=== PATIENT | female | born 1940 | race Caucasian/White ===

== ENCOUNTER 2019-01-06 11:06 | Emergency (ER) | payer MEDICARE, OTHER ==
[~2019-01-06] VITALS: Ht 165.1 cm; Wt 54.0 kg
[~2019-01-06 11:06] MED LIST: ASA81 MG PO; BENADRYL; CLORAZEPATE DI7.5 MG PO; CLORAZEPATE PO; Omega 3; PEPCID; PREDNISONE; Z FOSAMAX; Z PRESERVISION PO; Z VITAMIN E PO; Z.0.CITALOPRAM HBR10 PO; [UNRECOGNIZED DRUG - OTHER]; [UNRECOGNIZED DRUG - OTHER]; [UNRECOGNIZED DRUG - OTHER] PO; [UNRECOGNIZED DRUG - OTHER] PO; [UNRECOGNIZED DRUG - OTHER] PO; buspar
--- OUTSIDE RECORDS SUMMARY | 2019-01-06 11:09 | XMS REPORT ---
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 Allergies, Adverse Reactions, Alerts Allergy Name Allergy Type Status Severity Reaction(s) Onset Date Inactive Date Treating Clinician Comments Penicillins DA Active U 2018-03-14 00:00:00 Medications This patient has no known medications.
[2019-01-06] MEDS ORDERED: CLINDAMYCIN PHOS 600 MG/ 4 ML VIAL IM ONE (11:45)
== END 2019-01-06 12:08 | disposition home or self-care (01) ==
LOC: FSED 11:06
DX: L89.210 Pressure ulcer of right hip, unstageable (principal); I10 Essential (primary) hypertension; G35 Multiple sclerosis; Z87.19 Personal history of other diseases of the digestive system
CPT/HCPCS: 99282

== ENCOUNTER 2019-04-22 10:56 | Outpatient (RCR) | payer MEDICARE, OTHER ==
[2019-04-22 11:32] LABS: HEMATOCRIT 35.3 % (34.2-44.1); HEMOGLOBIN 11.4 g/dL (12.0-16.0); MEAN CORPUSCULAR HEMOGLOBIN 30.4 pg (28-32); MEAN CORPUSCULAR HGB CONC 32.3 g/dL (31-35); MEAN CORPUSCULAR VOLUME 94.1 fL (81-99); PLATELET COUNT 246 x10e3/uL (140-360); RED BLOOD COUNT 3.75 x10e6/uL (3.6-5.1); RED CELL DISTRIBUTION WIDTH 12.7 % (11.7-14.4)
[2019-04-22 11:49] LABS: ALANINE AMINOTRANSFERASE 13 IU/L (0-55); ALBUMIN 3.3 g/dL (3.5-5.0); ALBUMIN/GLOBULIN RATIO 0.9 (0.8-2.0); ALKALINE PHOSPHATASE 94 IU/L (40-150); ANION GAP 9.9 mmol/L (8-16); BLOOD UREA NITROGEN 17 mg/dL (7-26); BUN/CREATININE RATIO 20 (6-25); CALCIUM 9.8 mg/dL (8.4-10.2); CARBON DIOXIDE 29 mmol/L (22-29); CHLORIDE 101 mmol/L (98-107); CREATININE, SERUM 0.83 mg/dL (0.57-1.11); EST GLOMERULAR FILTRATION RATE > 60 ML/MIN (60-); GLUCOSE 72 mg/dL (74-118); POTASSIUM 4.9 mmol/L (3.5-5.1); SODIUM 135 mmol/L (136-145)
[2019-04-22] MEDS ORDERED: LIDOCAINE/PRILOCAINE 2.5-2.5% KIT ONE (12:56)
[2019-04-22] MEDS ORDERED: MUPIROCIN 2% OINT 22 GM TUBE ONE (12:56)
== END 2019-04-23 ==
LOC: WCC 10:56
PROVIDERS: ATTEND Family Medicine
DX: L89.890 Pressure ulcer of other site, unstageable (principal); G35 Multiple sclerosis; I10 Essential (primary) hypertension; M81.8 Other osteoporosis without current pathological fracture; Z74.01 Bed confinement status
CPT/HCPCS: 36415; 80053; 83036; 84134; 85007; 85027; 85651; 86140; 87071; 87075; 87205

== ENCOUNTER → 2019-04-23 | Outpatient (CLI) | payer MEDICARE, OTHER ==
--- NOTE | 2019-04-23 12:07 | Diagnostic Imaging Report ---
Right hip and pelvis, 2 views. History: Right hip pressure sore for 3 months. Findings: There is irregularity and air in the soft tissues overlying the right greater trochanter. Bone mineralization is normal. 3 screws are present within the right femoral neck, with their proximal portions slightly protruding laterally beyond the cortex. There is no evidence of acute fracture or dislocation. There are no lytic or sclerotic lesions. The joint spaces are within normal limits. IMPRESSION: Old postoperative changes of the right hip with overlying soft tissue irregularity and air concerning for soft tissue infection. No radiographic evidence of osteomyelitis, but a nuclear medicine bone scan would be more sensitive for detection of early osteomyelitis. Signed by: Bertin Ellis on 04/23/2019 12:03 PM
== END ==
LOC: RAD 11:12
PROVIDERS: ATTEND Family Medicine
DX: L89.890 Pressure ulcer of other site, unstageable (principal)

== ENCOUNTER → 2019-04-30 | Outpatient (CLI) | payer MEDICARE, OTHER ==
--- NOTE | 2019-05-03 10:17 | Diagnostic Imaging Report ---
Bone Scan, three-phase Reason for exam: Pressure ulcer at right hip posteriorly x3-4 months; right hip fracture during fall 02/2018. History of breast cancer 2012 Radiopharmaceutical: Tc-99m MDP 26 mCi IV right hand Comparison: RIght hip radiographs 04/23/2019 Following intravenous administration of the radiopharmaceutical, dynamic flow and immediate blood pool images of the pelvis and hips followed by delayed spot images were obtained. Flow and blood pool images show subtle diffusely increased tracer adjacent to the right compared to the left with focal mildly increased tracer in soft tissue immediately inferior to the right greater trochanter. On the delayed images, focal increased tracer is seen in the right femoral neck, consistent with known hip fracture. There is increased tracer activity in soft tissue inferior to the right greater trochanter. A small focus of very mildly increased tracer is seen in the right greater trochanter at the site of entry of the orthopedic screws that extend from immediately below the greater trochanter to the femoral neck.. Impression: Soft tissue inflammatory process in soft tissue adjacent to the area of the insertion of the orthopedic screws with focal increased tracer accumulation in the right greater trochanter at the site of entry screws that is worrisome for osteomyelitis. Signed by: Dr. Hemalatha Raines M.D. on 05/03/2019 10:14 AM
== END ==
LOC: NM 12:45
PROVIDERS: ATTEND Family Medicine
DX: L89.890 Pressure ulcer of other site, unstageable (principal)
CPT/HCPCS: 78315; A9503

== ENCOUNTER 2019-05-19 10:50 | Outpatient (RCR) | payer MEDICARE, OTHER ==
[~2019-05-19 10:50] MED LIST changes: +LIDOCAINE VISC 2% SOLN 15 ML UDC ONE; +LIDOCAINE/PRILOCAINE 2.5-2.5% KIT ONE; +MUPIROCIN 2% OINT 22 GM TUBE ONE
== END 2019-05-23 ==
LOC: WCC 10:50
PROVIDERS: ATTEND Family Medicine
DX: L89.893 Pressure ulcer of other site, stage 3 (principal); G35 Multiple sclerosis; I10 Essential (primary) hypertension; M81.8 Other osteoporosis without current pathological fracture; Z74.01 Bed confinement status

== ENCOUNTER 2019-06-16 12:43 | Outpatient (RCR) | payer MEDICARE, OTHER ==
[~2019-06-16 12:43] MED LIST changes: -LIDOCAINE VISC 2% SOLN 15 ML UDC ONE
[2019-06-16] MEDS ORDERED: LIDOCAINE/PRILOCAINE 2.5-2.5% KIT ONE (14:17)
== END 2019-06-23 ==
LOC: WCC 12:43
PROVIDERS: ATTEND Family Medicine
DX: L89.893 Pressure ulcer of other site, stage 3 (principal); L89.892 Pressure ulcer of other site, stage 2; M81.8 Other osteoporosis without current pathological fracture; G35 Multiple sclerosis; I10 Essential (primary) hypertension; Z74.01 Bed confinement status
CPT/HCPCS: 87071; 87075; 87205

== ENCOUNTER 2020-06-05 09:47 | Emergency (ER) | payer MEDICARE, OTHER ==
[~2020-06-05] VITALS: Ht 165.1 cm; Wt 45.4 kg
[~2020-06-05 09:47] MED LIST changes: -LIDOCAINE/PRILOCAINE 2.5-2.5% KIT ONE; -MUPIROCIN 2% OINT 22 GM TUBE ONE
--- NOTE | 2020-06-05 10:08 | Emergency Department Note ---
History of Present Illnes History of Present Illness Chief Complaint: Abdominal Complaints History of Present Illness This is a 80 year old female, with a history of MS, osteoporosis, a post-op RLE DVT in 09/2019, UTI, and chronic pain due to multiple right hip surgeries over the past 2 years, who is brought in with a four-day history of intermittent diarrhea, nausea, and weakness. Patient completed a course of antibiotics on 05/28/2020 for UTI. Patient took 3-4 days of Cipro, and then this was changed to Bactrim for 10 days, once the urine culture results were available. Patient's last UTI, prior to this one, was @ 6 months ago. Four days after completing these antibiotics, patient began to have diarrhea, typically in the block layer hours, with intermittent, mild lower abdominal cramping. She denies any blood or mucus in the stool. She states that her stools were firming up, but then she woke this morning and had explosive diarrhea, and she was unable to make it to the toilet. She had 3 episodes of loose, watery stool this morning. She denies any current abdominal pain, though she is having some mild nausea. She denies any fever, chills, cough, upper respiratory symptoms, dysuria, frequency, or urgency. Patient states that "she just doesn't feel good, stating that she feels washed out." She denies any chest pain, tightness, heaviness, or shortness of breath. Patient lives alone, and currently has 24-hour caregivers. She denies any known exposure to anyone with COVID 19. However, she does have 4 different caregivers that rotate caring for her. They do not wear a mask when they are in the house with her. She is attending physical therapy 3 times a week, as she recovers from multiple right hip surgeries, with the last one being 09/2019. She is minimally ambulatory, and only with assistance. Patient is allergic to PCN, as she states that "her throat closes." Patient was also started on Buprenorphine patch 5 mcg/hr last 05/30/20. The patch is on the right upper arm and is due to be changed tomorrow 06/06/2020. This is for chronic right hip pain, due to removal of the "ball of the right hip," and mulitple surgeries. Patient was taking Tylenol #3, prior to this patch being started. Historian: Patient, Family Member (daughter) Arrival Mode: Car Critical Care Registered Nurse Required: No Onset (how long ago): day(s) (4) Location: abdomen Quality: crampy Radiation: Reports non-radiation Severity: mild Onset quality: sudden Duration (how long): day(s) (4) Timing of current episode: intermittent Progression: waxing and waning Chronicity: new Context: Reports recent illness, Reports new medications (Buprenorphine patch started on 05/30/2020. She just completed a course of Cipro x 3 days, followed by Bactrim x 10 days. ) Relieving factors: none Exacerbating factors: none Associated symptoms: Reports loss of appetite, Reports malaise; Denies confusion, Denies cough, Denies fever/chills, Denies nausea/vomiting (nausea, without vomiting), Denies shortness of breath, Denies syncope, Denies weakness Treatments prior to arrival: other (She took Imodium and Pepto Bismol) Risk factors: recent antibiotic therapy, could cause c.diff. Past Medical/Family History Physician Review I have reviewed the patient's past medical and family history. Any updates have been documented here. Past Medical History Recent Fever: No Clinical Suspicion of Infectio: No New/Unexplained Change in Ment: No Past Medical History: Cancer (Right breast - treated with Lumpectomy in 2012;), UTI's, DVT/PE (09/2019 - RLE DVT, no PE;) Other Medical History: ANXIETY MS OSTEOPOROSIS ISCHEMIC COLITIS MITRAL VALVE PROLAPSE Chronic Anticoagulation, with Coumadin. Past Surgical History: Appendectomy, Hysterectomy Other Surgery: RIGHT SHOULDER LEFT SHOULDER THYROID LUMPECTOMY Right BREAST - due to breast cancer HIP SURGERY NECK FUSION CATARACT Social History Smoking Cessation: Never Smoker Alcohol Use: None Any Illegal Drug Use: No TB Exposure/Symptoms: No Physically hurt or threatened: No Family History Family history of heart diseas: No Other Last Tetanus: UTD Any Pre-Existing Lines (PICC,: No Is patient up to date on immun: Yes Review of Systems Review of Systems Constitutional: Reports malaise; Denies chills, Denies fever Cardiovascular: Denies chest pain, Denies palpitations Respiratory: Denies cough, Denies pain with cough, Denies dyspnea on exertion Gastrointestinal: Reports abdominal pain (mild, lower abdominal cramping), Reports diarrhea, Reports nausea; Denies vomiting Genitourinary: Reports no symptoms; Denies dysuria, Denies frequency Musculoskeletal: Reports joint pain (chronic right hip pain) Integumentary: Denies change in color, Denies rash Neurological: Reports no symptoms Psychological: Reports no symptoms Endocrine: Reports no symptoms Review of other systems: All other systems negative Physical Exam Related Data Allergies: Coded Allergies: Penicillins (Verified Allergy, Unknown, 01/06/19) Uncoded Allergies: SSRI'S (Allergy, Intermediate, 01/06/19) Vital signs reviewed: Yes Physical Exam CONSTITUTIONAL Constitutional: Present well-developed, Present well-nourished, Present cachectic, Present ill appearing; Absent distressed HENT HENT: Present normocephalic, Present atraumatic, Present oropharynx clear/moist, Present nose normal HENT L/R: Present left ext ear normal, Present right ext ear normal EYES Eyes: Reports PERRL, Reports conjunctivae normal NECK Neck: Present ROM normal PULMONARY Pulmonary: Present effort normal, Present breath sounds normal CARDIOVASCULAR Cardiovascular: Present regular rhythm, Present heart sounds normal, Present capillary refill normal, Present normal rate GASTROINTESTINAL Abdominal: Present soft, Present nontender, Present bowel sounds normal GENITOURINARY Genitourinary: Present exam deferred SKIN Skin: Present warm, Present dry; Absent rash MUSCULOSKELETAL Musculoskeletal: Absent edema, Absent tenderness NEUROLOGICAL Neurological: Present alert, Present oriented x 3 PSYCHOLOGICAL Psychological: Present mood/affect normal, Present behavior normal Results Laboratory Laboratory (See copies) PT/INR - 26.8/2.2; [place] - Cr = 0.6; Liver Panel - normal; CBC - WBC - nl; H/H = 11.4/35,4; plt - normal; Urine Dip - ket - tr, blo - mod, pro - trace, anahi - trace; Urine culture sent to [facility]< from the ED; Lab results reviewed: Yes Imaging Imaging results reviewed: Yes Impressions [place] [address] Patient Name: DARIELA RIOS MR #: [id number] : 1940 Age/Sex: 80/F Req #: [id number] Adm Physician: Ordered by: MAURO SOLORZANO MD Report #: [id number] Location: [facility] Room/Bed: Procedure: [id number] HOPD/CT ABD/PEL WO CONTRAST-HOPD Exam Date: 06/05/20 Exam Time: 1157 REPORT STATUS: Signed EXAM: CT Abdomen and Pelvis WITHOUT intravenous contrast INDICATION: Diarrhea, nausea COMPARISON: None. TECHNIQUE: Abdomen and pelvis were scanned utilizing a multidetector helical scanner from the lung base to the pubic symphysis without administration of IV contrast. Coronal and sagittal reformations were obtained. IV CONTRAST: None ORAL CONTRAST: None COMPLICATIONS: None RADIATION DOSE: Total DLP: 291 mGy*cm Dose modulation, iterative reconstruction, and/or weight based adjustment of the mA/kV was utilized to reduce the radiation dose to as low as reasonably achievable. FINDINGS: LOWER THORAX: Dependent right lower lobe groundglass and consolidative opacities. HEPATOBILIARY: 1.3 cm right hepatic cyst. No other focal liver lesions. Unremarkable gallbladder. SPLEEN: No splenomegaly. PANCREAS: No focal masses or ductal dilatation. ADRENALS: No adrenal nodules. KIDNEYS/URETERS: No hydronephrosis, stones, or solid mass lesions. PELVIC ORGANS/BLADDER: Unremarkable. PERITONEUM / RETROPERITONEUM: No free air or fluid. LYMPH NODES: No lymphadenopathy. VESSELS: Moderate athetotic calcifications of the nonaneurysmal abdominal aorta and major branches. 1.3 cm calcified splenic artery aneurysm. GI TRACT: Prominent diverticulosis of the sigmoid and distal descending colon. No CT evidence of diverticulitis. No abnormal bowel thickening. No bowel obstruction. Small amount of retained oral contrast material in the colon and distal small bowel. BONES AND SOFT TISSUES: Postoperative and/or post infectious findings of the right hip with resection of the right femoral head. No suspicious lytic or blastic lesions. IMPRESSION: Dependent right lower lobe groundglass and consolidative opacities may represent aspiration and/or pneumonia in the proper clinical setting. Prominent sigmoid and distal descending colon diverticulosis without CT evidence of diverticulitis. Prior resection of the right femoral head. Signed by: Remington Ely MD on 06/05/2020 12:23 PM Dictated By: REMINGTON ELY MD 1223 Transcribed By: TARIK on 06/05/20 1223 COPY TO: MAURO SOLORZANO MD~ Diagnostics Tests Diagnostic test(s) reviewed: Yes Assessment & Plan Medical Decision Making [facility] . 13:00 - discussed results of lab work and CT scan with patient, daughter, and caregiver at the bedside. Explained that the CT of the abdomen and pelvis revealed no pathology in the abdomen, other than diverticulosis which patient has had for a number of years. There was no evidence of diverticulitis to explain patient's diarrhea. However, the CT scan revealed a right lower lobe infiltrate, somewhat groundglass in appearance, but also suspicious for possible aspiration. Patient admits to choking on water, at times, but never on food. According to patient's daughter, there has been concern regarding aspiration previously, sometime over the past 2 years when patient has been in and out of the hospital due to right hip surgeries. She has had a swallowing study performed in the past, but it has been nearly 2 years ago. They do not recall patient having a history of aspiration pneumonia. - Pneumonia could be due to aspiration and/or COVID 19 infection. She has a nl WBC and other labs look great! - Will start Levaquin IV which will cover the pneumonia and possible UTI. Patient may also have a persistent UTI, with urine dip showing moderate blood and trace leuk, urine culture was sent. She is also having diarrhea, which started 4 days after she completed @ 14 days of oral antibiotics ( 3-4 days of Cipro, followed by 10 days of Bactrim). Stool studies may be indicated. Covid 19 could also be a possibility, if she has a positive test. - Explained to patient, that although her labs and vital signs look good, she would benefit from hospitalization in order to further evaluate for possible aspiration pneumonia, and to begin treatment if it is found to be present. Her diarrhea can also be further evaluated. Patient is agreeable to admission, for the reasons stated above. [facility] has no beds available, so [facility] is contacted for transfer of patient. Patient family are informed and agreeable. 13:35 - case discussed with Dr. Díaz, who is agreeable to accepting patient. She will need a rapid COVID 19 test, upon arrival. Assessment & Plan Final Impression: (1) Aspiration pneumonia (2) Person under investigation for COVID-19 (3) Diarrhea (4) UTI (urinary tract infection) (5) Weakness generalized (6) History of DVT (deep vein thrombosis) Depart Disposition: TRANS TO OTHER [facility] (pt accepted to [facility], by Dr. Luz, hospitalist manager documentation. ) Home Meds Active Scripts Buprenorphine (BUTRANS) 1 Each Patch.tdwk, 5 MCG TD q 7 days for chronic hip pain, #1 Prov:MAURO SOLORZANO MD 06/05/20 Reported Medications Warfarin Sodium (COUMADIN) 5 Mg Tablet 06/05/20 Warfarin Sodium (COUMADIN) 2.5 Mg Tablet, 2.5 MG PO 1700, #7 TAB 06/05/20 Clorazepate Dipotassium (CLORAZEPATE DIPOTASSIUM) 7.5 Mg Tablet, 5.5 MG PO AM 06/26/15 Citalopram Hydrobromide (Citalopram Hbr) 10 Mg Tablet, 10 MG PO DAILY 08/07/12 [[place] 3] No Conflict Check 08/07/12 Calcium Carbonate (Calcium) 500 Mg Tablet, 1800 UNIT PO DAILY, 0 Refills 09/23/11 Aspirin (Asa) 81 Mg Tab, 1 TAB PO DAILY 09/23/11 Clorazepate Dipotassium (Clorazepate Dipotassium) 3.75 Mg Tablet, 7.5 MG PO PM, 0 Refills 09/23/11 Atenolol (Tenormin) 100 Mg Tablet, 500 MG PO DAILY 09/23/11 MAURO SOLORZANO MD Jun 05, 2020 10:08
[2020-06-05] MEDS ORDERED: ONDANSETRON HCL INJ 2MG/ML 2ML 2 MG/ML VIAL IV STA (10:13)
[2020-06-05] MEDS ORDERED: SODIUM CHLORIDE 0.9% 1000ML 1,000 ML IV SCH (10:15)
[2020-06-05] MEDS ORDERED: WARFARIN SODIUM5 MG (11:44)
[2020-06-05] MEDS ORDERED: COUMADIN2.5 MG PO (11:44)
--- NOTE | 2020-06-05 12:26 | Diagnostic Imaging Report ---
EXAM: CT Abdomen and Pelvis WITHOUT intravenous contrast INDICATION: Diarrhea, nausea COMPARISON: None. TECHNIQUE: Abdomen and pelvis were scanned utilizing a multidetector helical scanner from the lung base to the pubic symphysis without administration of IV contrast. Coronal and sagittal reformations were obtained. IV CONTRAST: None ORAL CONTRAST: None COMPLICATIONS: None RADIATION DOSE: Total DLP: 291 mGy*cm Dose modulation, iterative reconstruction, and/or weight based adjustment of the mA/kV was utilized to reduce the radiation dose to as low as reasonably achievable. FINDINGS: LOWER THORAX: Dependent right lower lobe groundglass and consolidative opacities. HEPATOBILIARY: 1.3 cm right hepatic cyst. No other focal liver lesions. Unremarkable gallbladder. SPLEEN: No splenomegaly. PANCREAS: No focal masses or ductal dilatation. ADRENALS: No adrenal nodules. KIDNEYS/URETERS: No hydronephrosis, stones, or solid mass lesions. PELVIC ORGANS/BLADDER: Unremarkable. PERITONEUM / RETROPERITONEUM: No free air or fluid. LYMPH NODES: No lymphadenopathy. VESSELS: Moderate athetotic calcifications of the nonaneurysmal abdominal aorta and major branches. 1.3 cm calcified splenic artery aneurysm. GI TRACT: Prominent diverticulosis of the sigmoid and distal descending colon. No CT evidence of diverticulitis. No abnormal bowel thickening. No bowel obstruction. Small amount of retained oral contrast material in the colon and distal small bowel. BONES AND SOFT TISSUES: Postoperative and/or post infectious findings of the right hip with resection of the right femoral head. No suspicious lytic or blastic lesions. IMPRESSION: Dependent right lower lobe groundglass and consolidative opacities may represent aspiration and/or pneumonia in the proper clinical setting. Prominent sigmoid and distal descending colon diverticulosis without CT evidence of diverticulitis. Prior resection of the right femoral head. Signed by: Shayla Kaminski MD on 06/05/2020 12:23 PM
--- NOTE | 2020-06-05 12:58 | NUR ---
urine culture obtained
[2020-06-05] MEDS ORDERED: LEVOFLOXACIN 750MG/D5W 150ML 150 ML IV SCH (13:15)
--- NOTE | 2020-06-05 13:30 | NUR ---
Contacted [facility] transfer [place] after calling [facility] and told there were no beds for [facility]. [facility] said they would call back with doctor soon for transfer.
--- NOTE | 2020-06-05 13:36 | NUR ---
Doc to doc being done at this time
--- NOTE | 2020-06-05 13:44 | NUR ---
admin approval for bed 709 at this time fax face sheet and mot to [phone] to Floridalma Luna RN Dr. Shaun Díaz accepted the pt
--- NOTE | 2020-06-05 14:00 | NUR ---
Contacted Matthew at [facility] to arrange transport of pt to [facility]
[2020-06-05] MEDS ORDERED: BUTRANS1 EAC2 TD (14:24)
--- NOTE | 2020-06-05 14:50 | NUR ---
[facility] here to transport pt to [facility]
--- NOTE | 2020-06-05 14:58 | NUR ---
Report called to ROVERTO Cardona
[2020-06-05 14:59] VITALS: BP 121/63
== END 2020-06-05 15:00 | disposition short-term general hospital (02) ==
LOC: FSED 10:21
DX: J69.0 Pneumonitis due to inhalation of food and vomit (principal); N39.0 Urinary tract infection, site not specified; K57.30 Diverticulosis of large intestine without perforation or abscess without bleeding; R53.1 Weakness; R19.7 Diarrhea, unspecified; R10.30 Lower abdominal pain, unspecified; Z09 Encounter for follow-up examination after completed treatment for conditions other than malignant neoplasm; Z86.718 Personal history of other venous thrombosis and embolism; M25.551 Pain in right hip; Z88.0 Allergy status to penicillin; Z85.3 Personal history of malignant neoplasm of breast; Z87.440 Personal history of urinary (tract) infections; Z79.01 Long term (current) use of anticoagulants; Z20.828 Contact with and (suspected) exposure to other viral communicable diseases
CPT/HCPCS: 74176; 80048; 80076; 81003; 85025; 85610; 87086; 87186; 96374; 99284; J2405; J7030

== ENCOUNTER 2020-10-21 11:25 | Inpatient (IN) | payer MEDICARE, OTHER ==
[~2020-10-21] VITALS: Ht 175.3 cm; Wt 38.6 kg
[~2020-10-21 11:25] MED LIST changes: +BUTRANS1 EAC2 TD; +COUMADIN2.5 MG PO; +WARFARIN SODIUM5 MG
[2020-10-21] MEDS ORDERED: DILTIAZEM HCL 5 MG/ML 5 ML VIAL IV STA ×2 (11:49→13:42)
[2020-10-21] MEDS ORDERED: PRESERVISION A1 EAC2 (11:57)
[2020-10-21] MEDS ORDERED: TYLENOL # 31 EA (11:57)
[2020-10-21] MEDS ORDERED: LACTATED RINGER'S 500 ML IV ONE ×2 (12:00→12:45)
[2020-10-21] MEDS ORDERED: LACTATED RINGER'S 1,000 ML ONE (12:10)
[2020-10-21] MEDS ORDERED: DILTIAZEM HCL VIAL 5 ML ONE (12:11)
[2020-10-21] MEDS ORDERED: CEFEPIME HCL 1 GM VIAL IV ONE (12:45)
[2020-10-21] MEDS ORDERED: CEFEPIME 1GM/NS 0.9% 50 ML 50 ML IV ONE (13:10)
[2020-10-21] MEDS ORDERED: DIGOXIN INJ 0.25 MG/ML 2 ML AMP IV NR (13:45)
[2020-10-21] MEDS ORDERED: ONDANSETRON HCL INJ 2MG/ML 2ML 2 MG/ML VIAL IV PRN (15:45)
[2020-10-21] MEDS ORDERED: METOPROLOL TARTRATE INJ 1 MG/ML VIAL IV PRN (15:45)
[2020-10-21] MEDS ORDERED: POLYETHYLENE GLYCOL 3350 17 GM PACK PO PRN (15:45)
[2020-10-21] MEDS ORDERED: ACETAMINOPHEN 325 MG TAB PO PRN (15:45)
[2020-10-21] MEDS ORDERED: FAMOTIDINE 20 MG/2 ML VIAL IV SCH (17:00)
[2020-10-21] MEDS: DOCUSATE SODIUM 100 MG CAP PO SCH (17:00)
[2020-10-21 17:29] VITALS: BP 141/66
[2020-10-21 17:30] VITALS: BP 141/66
[2020-10-21 18:27] VITALS: BP 158/70
[2020-10-21 18:35] VITALS: BP 142/60
[2020-10-21] MEDS ORDERED: FUROSEMIDE INJ 10 MG/ML 2 ML VIAL IV STA (18:35)
[2020-10-21] MEDS ORDERED: CEFTRIAXONE SOD 1 GM/NS 50 ML 50 ML IV ONE (18:45)
[2020-10-21] MEDS ORDERED: AZITHROMYCIN 500MG/NS 250 ML 250 ML IV ONE (18:45)
[2020-10-21] MEDS: IPRATROPIUM BROMIDE 0.02% 2.5 ML NEB NEB SCH (19:00)
[2020-10-21] MEDS ORDERED: ACETAMINOPHEN/CODEINE 300MG - 30MG TAB PO PRN (19:00)
[2020-10-21] MEDS: LEVALBUTEROL HCL SOLN NEBU 0.63 MG/3 ML NEB INH SCH (19:00)
[2020-10-21] MEDS ORDERED: PHYTONADIONE 10 MG/ML AMP SQ ONE (19:15)
[2020-10-21] MEDS ORDERED: SODIUM CHLORIDE 0.9% 250ML 250 ML ONE (20:10)
[2020-10-21] MEDS: CEFTRIAXONE SOD 1 GM/NS 50 ML 50 ML IV SCH (20:25)
[2020-10-21 21:00] VITALS: BP 110/74
[2020-10-21] MEDS: CLORAZEPATE DIPOTASSIUM 3.75 MG TAB PO SCH (21:00)
[2020-10-21] MEDS ORDERED: TEMAZEPAM 15 MG CAP PO PRN (21:00)
[2020-10-21] MEDS ORDERED: DIGOXIN INJ 0.25 MG/ML 2 ML AMP IV ONE (21:00)
[2020-10-21] MEDS: AZITHROMYCIN 500MG/NS 250 ML 250 ML IV SCH (21:21)
[2020-10-21] MEDS ORDERED: METOPROLOL TARTRATE 25 MG TAB PO SCH (21:45)
[2020-10-21 21:55] VITALS: BP 110/74
[2020-10-22] VITALS (8 sets, daily range): BP systolic 107–124; BP diastolic 47–70
[2020-10-22] MEDS: IPRATROPIUM BROMIDE 0.02% 2.5 ML NEB NEB SCH ×4 (00:05→18:45)
[2020-10-22] MEDS: LEVALBUTEROL HCL SOLN NEBU 0.63 MG/3 ML NEB INH SCH ×4 (00:05→18:45)
[2020-10-22] MEDS ORDERED: SODIUM CHLORIDE 0.9% 50ML 0 ML ONE (05:33)
[2020-10-22] MEDS ORDERED: IOPAMIDOL 370 MG/ML 200 ML INFUS..BTL INJ ONE (05:34)
[2020-10-22] MEDS ORDERED: SODIUM CHLORIDE 0.9% 100 ML ONE (06:29)
[2020-10-22 06:40] LABS: BASOPHILS # (AUTO) 0.1 (0.0-0.1); BASOPHILS % 0.6 % (0.0-1.0); EOSINOPHILS % 0.1 % (0.0-6.0); HEMATOCRIT 31.9 % (34.2-44.1); HEMOGLOBIN 10.1 g/dL (12.0-16.0); LYMPHOCYTES # (AUTO) 0.4 (1.0-3.2); LYMPHOCYTES % 2.8 % (18.0-39.1); MEAN CORPUSCULAR HEMOGLOBIN 29.4 pg (28-32); MEAN CORPUSCULAR HGB CONC 31.7 g/dL (31-35); MONOCYTES # (AUTO) 0.4 (0.2-0.8); MONOCYTES % 3.2 % (4.4-11.3); NEUTROPHILS # (AUTO) 12.6 (2.1-6.9); NEUTROPHILS % 92.9 % (38.7-80.0); PLATELET COUNT 233 x10e3/uL (140-360); RED BLOOD COUNT 3.43 x10e6/uL (3.6-5.1); RED CELL DISTRIBUTION WIDTH 13.6 % (11.7-14.4)
[2020-10-22 06:56] LABS: INR 2.88; PROTHROMBIN TIME 31.5 seconds (11.9-14.5)
[2020-10-22 07:02] LABS: ALANINE AMINOTRANSFERASE 10 IU/L (0-55); ALBUMIN 2.1 g/dL (3.5-5.0); ALBUMIN/GLOBULIN RATIO 0.5 (0.8-2.0); ALKALINE PHOSPHATASE 70 IU/L (40-150); ANION GAP 13.1 mmol/L (8-16); CALCIUM 8.4 mg/dL (8.4-10.2); CARBON DIOXIDE 28 mmol/L (22-29); CHLORIDE 102 mmol/L (98-107); CHOL/HDL RATIO 3.1 (3.0-3.6); CHOLESTEROL 90 MD/DL (0-199); CREATININE, SERUM 0.44 mg/dL (0.57-1.11); EST GLOMERULAR FILTRATION RATE > 60 ML/MIN (60-); GLUCOSE 115 mg/dL (74-118); HDL CHOLESTEROL 29 MG/DL (40-60); LDL CHOLESTEROL 47 MG/DL (60-130); MAGNESIUM 1.4 MG/DL (1.3-2.1); PHOSPHORUS 3.3 MG/DL (2.3-4.7); POTASSIUM 4.1 mmol/L (3.5-5.1); SODIUM 139 mmol/L (136-145); TRIGLYCERIDES 72 MG/DL (0-149)
[2020-10-22 07:24] LABS: THYROID STIMULATING HORMONE 0.238 uIU/mL (0.350-4.940)
[2020-10-22 07:29] LABS: BLOOD UREA NITROGEN 13 mg/dL (7-26); BUN/CREATININE RATIO 30 (6-25)
[2020-10-22] MEDS: CALCIUM CARBONATE 500 MG CHEWABLE TABS PO SCH (08:13)
[2020-10-22] MEDS: ASPIRIN 81 MG ENTERIC COATED PO SCH (08:13)
[2020-10-22] MEDS: PANTOPRAZOLE SOD 40 MG TABEC PO SCH (08:13)
[2020-10-22] MEDS: GUAIFENESIN 600MG/DEXTROMETHORPHAN 30MG TABSR PO SCH ×2 (08:13→15:58)
[2020-10-22] MEDS: DOCUSATE SODIUM 100 MG CAP PO SCH ×2 (08:13→15:58)
[2020-10-22] MEDS: METOPROLOL TARTRATE 25 MG TAB PO SCH ×2 (08:13→21:57)
[2020-10-22] MEDS ORDERED: MAGNESIUM SULFATE 2GM/50ML 50 ML IV ONE (13:45)
[2020-10-22] MEDS: CLORAZEPATE DIPOTASSIUM 3.75 MG TAB PO SCH (21:00)
[2020-10-22] MEDS ORDERED: CLORAZEPATE DIPOTASSIUM 3.75 MG TAB PO SCH (21:00)
[2020-10-22] MEDS: CEFTRIAXONE SOD 1 GM/NS 50 ML 50 ML IV SCH (21:00)
[2020-10-22] MEDS: AZITHROMYCIN 500MG/NS 250 ML 250 ML IV SCH (22:30)
[2020-10-23] VITALS (13 sets, daily range): BP systolic 63–164; BP diastolic 19–89
[2020-10-23] MEDS: LEVALBUTEROL HCL SOLN NEBU 0.63 MG/3 ML NEB INH SCH ×3 (00:35→13:00)
[2020-10-23] MEDS: IPRATROPIUM BROMIDE 0.02% 2.5 ML NEB NEB SCH ×3 (00:35→13:00)
[2020-10-23 07:05] LABS: BASOPHILS # (AUTO) 0.1 (0.0-0.1); BASOPHILS % 0.5 % (0.0-1.0); HEMATOCRIT 33.9 % (34.2-44.1); HEMOGLOBIN 10.5 g/dL (12.0-16.0); LYMPHOCYTES # (AUTO) 0.5 (1.0-3.2); LYMPHOCYTES % 2.8 % (18.0-39.1); MEAN CORPUSCULAR VOLUME 93.6 fL (81-99); MONOCYTES # (AUTO) 0.7 (0.2-0.8); MONOCYTES % 4.1 % (4.4-11.3); NEUTROPHILS # (AUTO) 15.7 (2.1-6.9); NEUTROPHILS % 92.1 % (38.7-80.0); PLATELET COUNT 264 x10e3/uL (140-360); RED BLOOD COUNT 3.62 x10e6/uL (3.6-5.1); RED CELL DISTRIBUTION WIDTH 13.5 % (11.7-14.4)
[2020-10-23 07:09] LABS: INR 1.43; PROTHROMBIN TIME 18.2 seconds (11.9-14.5)
[2020-10-23 07:18] LABS: ANION GAP 11.8 mmol/L (8-16); BLOOD UREA NITROGEN 17 mg/dL (7-26); BUN/CREATININE RATIO 29 (6-25); CALCIUM 9.2 mg/dL (8.4-10.2); CARBON DIOXIDE 35 mmol/L (22-29); CHLORIDE 102 mmol/L (98-107); CREATININE, SERUM 0.58 mg/dL (0.57-1.11); EST GLOMERULAR FILTRATION RATE > 60 ML/MIN (60-); GLUCOSE 138 mg/dL (74-118); PHOSPHORUS 1.8 MG/DL (2.3-4.7); POTASSIUM 3.8 mmol/L (3.5-5.1); SODIUM 145 mmol/L (136-145)
[2020-10-23] MEDS: PANTOPRAZOLE SOD 40 MG TABEC PO SCH (07:30)
[2020-10-23] MEDS: CALCIUM CARBONATE 500 MG CHEWABLE TABS PO SCH (09:00)
[2020-10-23] MEDS: GUAIFENESIN 600MG/DEXTROMETHORPHAN 30MG TABSR PO SCH ×2 (09:00→16:26)
[2020-10-23] MEDS: DOCUSATE SODIUM 100 MG CAP PO SCH ×2 (09:00→16:26)
[2020-10-23] MEDS: METOPROLOL TARTRATE 25 MG TAB PO SCH (09:00)
[2020-10-23] MEDS: ASPIRIN 81 MG ENTERIC COATED PO SCH (09:00)
[2020-10-23] MEDS ORDERED: IOPAMIDOL 300MG/ML 100 ML INFUS..BTL IV ONE (09:22)
[2020-10-23] MEDS ORDERED: POTASSIUM PHOSPHATE 15 MM in SODIUM CHLORIDE 0.9% 250ML 250 ML IV ONE (10:45)
[2020-10-23] MEDS ORDERED: ONDANSETRON HCL 4 MG ORAL DISINTEGRATING TAB PO PRN (12:00)
[2020-10-23] MEDS ORDERED: SODIUM CHLORIDE 0.9% 1000ML 1,000 ML ONE (13:44)
[2020-10-23] MEDS ORDERED: NOREPINEPHRINE INJ 4MG/4ML 8 MG in DEXTROSE 5% 250ML 250 ML IV SCH (13:45)
[2020-10-23] MEDS ORDERED: SODIUM CHLORIDE 0.9% 250ML 250 ML IV ONE (13:45)
[2020-10-23] MEDS ORDERED: NOREPINEPHRINE 8 MG/D5W 250 ML 250 ML IV PRN (14:00)
[2020-10-23] MEDS ORDERED: MIDAZOLAM HCL 5MG/ML 10ML VIAL 100 ML IV PRN (14:15)
[2020-10-23] MEDS ORDERED: VANCOMYCIN 1GM/NS 250 ML 250 ML IV SCH (14:15)
[2020-10-23 14:25] LABS: BASOPHILS # (AUTO) 0.1 (0.0-0.1); BASOPHILS % 0.3 % (0.0-1.0); EOSINOPHILS # (AUTO) 0.1 (0.0-0.4); EOSINOPHILS % 0.3 % (0.0-6.0); HEMATOCRIT 34.4 % (34.2-44.1); HEMOGLOBIN 10.5 g/dL (12.0-16.0); LYMPHOCYTES # (AUTO) 0.3 (1.0-3.2); LYMPHOCYTES % 2.1 % (18.0-39.1); MEAN CORPUSCULAR HEMOGLOBIN 29.1 pg (28-32); MEAN CORPUSCULAR HGB CONC 30.5 g/dL (31-35); MEAN CORPUSCULAR VOLUME 95.3 fL (81-99); MONOCYTES # (AUTO) 0.4 (0.2-0.8); MONOCYTES % 2.6 % (4.4-11.3); NEUTROPHILS % 93.9 % (38.7-80.0); RED BLOOD COUNT 3.61 x10e6/uL (3.6-5.1); RED CELL DISTRIBUTION WIDTH 13.6 % (11.7-14.4)
[2020-10-23 14:26] LABS: PLATELET COUNT 295 x10e3/uL (140-360)
[2020-10-23] MEDS ORDERED: MEROPENEM 1GM 100 ML IV SCH (14:30)
[2020-10-23 14:44] LABS: ALANINE AMINOTRANSFERASE 26 IU/L (0-55); ALBUMIN/GLOBULIN RATIO 0.5 (0.8-2.0); ALKALINE PHOSPHATASE 105 IU/L (40-150); ANION GAP 15.6 mmol/L (8-16); BLOOD UREA NITROGEN 19 mg/dL (7-26); BUN/CREATININE RATIO 28 (6-25); CALCIUM 8.8 mg/dL (8.4-10.2); CARBON DIOXIDE 30 mmol/L (22-29); CHLORIDE 107 mmol/L (98-107); CREATININE, SERUM 0.68 mg/dL (0.57-1.11); EST GLOMERULAR FILTRATION RATE > 60 ML/MIN (60-); GLUCOSE 180 mg/dL (74-118); POTASSIUM 3.6 mmol/L (3.5-5.1); SODIUM 149 mmol/L (136-145)
[2020-10-23 14:50] LABS: ABG PCO2 56 mmHg (35-45); ABG PH 7.39 (7.35-7.45)
[2020-10-23 14:51] LABS: ABG HCO3 34 mmol/L (22-26); ABG PO2 200 mmHg (80-105); ABG TCO2 35
[2020-10-23] MEDS ORDERED: SODIUM CHLORIDE 0.9% 500ML 500 ML IV ONE (16:15)
[2020-10-23] MEDS ORDERED: SODIUM CHLORIDE 0.9% IV SCH (16:45)
[2020-10-23] MEDS ORDERED: WARFARIN SOD 2.5 MG TAB NG SCH (17:00)
[2020-10-23] MEDS ORDERED: MORPHINE SULFATE 2 MG/ML SYR 1ML IV PRN (18:30)
[2020-10-23] MEDS ORDERED: LORAZEPAM INJ 2 MG/ML VIAL IV PRN (18:30)
[2020-10-24] MEDS ORDERED: BALSAM PERU/CASTOR OIL 60 GM OINT...G. TP SCH (09:00)
== END 2020-10-23 19:52 | disposition expired | DRG 871 ==
LOC: FSED 11:40 → ERHOLD 13:22 → MED/SURG2 17:02 → ICU 10-23 13:41
PROVIDERS: ADMIT Internal Medicine; ATTEND Internal Medicine
PROC: 0BH17EZ Insertion of Endotracheal Airway into Trachea, Via Natural or Artificial Opening (ICD-10-PCS; principal; 2020-10-23)
PROC: 5A1935Z Respiratory Ventilation, Less than 24 Consecutive Hours (ICD-10-PCS; 2020-10-23)
DX: A41.9 Sepsis, unspecified organism (principal); J96.00 Acute respiratory failure, unspecified whether with hypoxia or hypercapnia; J69.0 Pneumonitis due to inhalation of food and vomit; J96.01 Acute respiratory failure with hypoxia; J15.212 Pneumonia due to Methicillin resistant Staphylococcus aureus; I48.20 Chronic atrial fibrillation, unspecified; N39.0 Urinary tract infection, site not specified; Z68.1 Body mass index [BMI] 19.9 or less, adult; R64 Cachexia; Z66 Do not resuscitate; Z79.01 Long term (current) use of anticoagulants; R65.20 Severe sepsis without septic shock; M81.0 Age-related osteoporosis without current pathological fracture; D50.0 Iron deficiency anemia secondary to blood loss (chronic); I46.9 Cardiac arrest, cause unspecified; E83.42 Hypomagnesemia; F41.9 Anxiety disorder, unspecified; Z99.3 Dependence on wheelchair; M25.551 Pain in right hip; W19.XXXD Unspecified fall, subsequent encounter
CPT/HCPCS: 20610; 31500; 36415; 36600; 71045; 71260; 74470; 80048; 80053; 80061; 80076; 81003; 82553; 82805; 83036; 83605; 83735; 83880; 84100; 84443; 84484; 85025; 85379; 85610; 87040; 87070; 87071; 87075; 87086; 87102; 87116; 87186; 87205; 87206; 87400; 87449; 92950; 93005; 93306; 93971; 94002; 94640; 96374; 96375; 99251; 99284; J0456; J0692; J0696; J1160; J1940; J2060; J2270; J3370; J3430; J3475; J7030; J7040; J7050; J7120; J7121; Q9967; U0002